=== PATIENT | male | born 1980 | race Caucasian/White ===

== ENCOUNTER → 2018-10-08 | Outpatient (CLI) | payer OTHER ==
--- NOTE | 2018-10-08 09:56 | 2DMMODE ---
[facility] [place] [address] 2 D/M-MODE ECHOCARDIOGRAM Name: APRIL STEELE Room #: [facility] [id number] Admission: 10/08/18 Attend Phys: Physician not on s Discharge: Date of : 84 Date of Service: 10/08/18 0956 Report #: [id number] THIS REPORT FOR: //name// APPROVED REPORT Study performed: 10/08/2018 09:21:52 EXAM: Comprehensive 2D, Doppler, and color-flow Echocardiogram Patient Location: Out-Patient Status: routine BSA: 2.13 HR: 78 bpm BP: 118/78 mmHg Rhythm: NSR/arrhythmia Other Information Study Quality: Excellent Indications Hypertrophic cardiomyopathy. Hx: ICD, HLP. 2D Dimensions RVDd: 34.80 mm IVSd: 14.00 (7-11mm) LVOT Diam: 21.23 (18-24mm) LVDd: 42.29 mm PWd: 9.53 (7-11mm) Ascending Ao: 34.92 (22-36mm) LVDs: 30.88 (25-40mm) Aortic Root: 32.91 mm Volumes Left Atrial Volume (Systole) Single Plane 4CH: 64.89 mL Single Plane 2CH: 77.25 mL LA ESV Index: 36.00 mL/m2 Aortic Valve AoV Peak Vasyl.: 1.60 m/s AO Peak Gr.: 10.28 mmHg LVOT Max P.30 mmHg LVOT Max V: 1.35 m/s RAJINDER Vmax: 2.98 cm2 Mitral Valve E/A Ratio: 1.5 MV Decel. Time: 203.26 ms MV E Max Vasyl.: 0.79 m/s [facility] [employer] [address] 2 D/M-MODE ECHOCARDIOGRAM Name: CEDRIC,APRIL CLAUDIA Room #: REG [facility].#: [id number] Admission: 10/08/18 Attend Phys: Physician not on s Discharge: Date of : 84 Date of Service: 10/08/18 0956 Report #: [id number] MV A Vasyl.: 0.52 m/s MV PHT: 58.95 ms IVRT: 69.20 ms Pulmonary Valve PV Peak Vasyl.: 1.09 m/s PV Peak Gr.: 4.79 mmHg Pulmonary Vein P Vein S: 0.39 m/s P Vein D: 0.47 m/s P Vein S/D Ratio: 0.83 Tricuspid Valve TR Peak Vaysl.: 2.50 m/s RAP Estimate: 5.00 mmHg TR Peak Gr.: 25.01 mmHg PA Pressure: 30.00 mmHg Left Ventricle The left ventricle is normal size. There is normal LV segmental wall motion. Mild septal hypertrophy is present. Left ventricular systolic function is normal. LVEF is 60%. The left ventricular diastolic function is normal. Right Ventricle The right ventricle is normal size. The right ventricular systolic function is normal. Pacemaker lead is present in the right ventricle. Atria Left atrium is at the upper limits of normal. The right atrium size is normal. Aortic Valve Aortic valve is trileaflet. Trace aortic regurgitation. There is no aortic valvular stenosis. Mitral Valve The mitral valve is normal in structure. Trace mitral regurgitation. Tricuspid Valve The tricuspid valve is normal in structure. Mild tricuspid regurgitation. Estimated PAP is 30mmHg. Pulmonic Valve The pulmonary valve is normal in structure. Trace pulmonic regurgitation. [facility] [address] [address] 2 D/M-MODE ECHOCARDIOGRAM Name: APRIL STEELE CLAUDIA Room #: [facility]#: [id number] Admission: 10/08/18 Attend Phys: Physician not on s Discharge: Date of : 84 Date of Service: 10/08/18 0956 Report #: [id number] Great Vessels The aortic root is normal in size. The ascending aorta is normal in size. IVC is normal in size and collapses >50% with inspiration. Pericardium There is no pericardial effusion. <Conclusion> The left ventricle is normal size. Left ventricular systolic function is normal. The left ventricular diastolic function is normal. The right ventricle is normal size. Pacemaker lead is present in the right ventricle. Left atrium is at the upper limits of normal. The right atrium size is normal. Trace aortic regurgitation. Trace mitral regurgitation. Mild tricuspid regurgitation. Estimated PAP is 30mmHg. <ELECTRONICALLY SIGNED> By: Alf Dia MD 10/08/18955 5 5 Alf Dia MD /INF
== END ==
LOC: CV 09:10
DX: I07.1 Rheumatic tricuspid insufficiency (principal); E78.5 Hyperlipidemia, unspecified